=== PATIENT | female | born 1980 | race Caucasian/White ===

== ENCOUNTER 2016-06-07 15:06 | Outpatient (CLI) | payer OTHER ==
--- NOTE | 2016-06-07 18:32 | DIAGNOSTIC IMAGING REPORT ---
PROCEDURE: MR LUMBAR SPINE W/WO CONTRAST INDICATION: Low back and left leg pain. Scoliosis. Prior lumbar surgery (2014). Thoracic scoliosis with Sommer rods. TECHNIQUE: T1, T2 and STIR sagittal images. T1 coronal images. T1 and T2 axial images. Following 14 mL of intravenous gadolinium (ProHance), FAT-SAT T1 sagittal and axial images were obtained. COMPARISON: Comparison is made to MRI lumbar spine from [facility] [place] on 05/02/2015. Comparison made to chest x-ray on 12/07/1968. FINDINGS: There are postoperative changes of the lower thoracic spine with metal hardware consistent with Sommer rods. There is a severe levoscoliosis lumbar spine (35 degrees). Status post L3-4 discectomy, laminectomy, and posterior fusion (metal hardware). Conus is normal. L1-2: Minimally chronically bulging disc. No evidence of canal compromise. L2-3: Minimally chronically bulging disc. No evidence of canal compromise. L3-4: Status post discectomy with probable disc space throughout. Status post laminectomy with moderate residual scarring. Status post posterior fusion (metal stabilization plates and pedicle screws - - metal hardware/artifact). There is no evidence of canal compromise. L4-5: Mildly to moderately bulging disc and moderate to marked facet disease. In addition, there is a 5 mm cyst in the lateral aspect of the left neural foramen. Overall, these changes result in moderate narrowing of the central canal, lateral recesses, and lateral aspect of the left left neural foramen. L5-S1: Moderate facet disease. Disc is normal. There is surgical fusion of the right sacroiliac joint (metal screw artifact) IMPRESSION: 1. Postoperative changes of the lower thoracic spine (metal Sommer rods). 2. Severe levoscoliosis of the lumbar spine (35 degrees). 3. Minimally bulging discs at L1-2 and L2-3, but no evidence of canal compromise. 4. Status post L3-4 discectomy, laminectomy, and posterior element fusion (metal hardware). No evidence of canal compromise at this level. 5. Mildly to moderately bulging disc at L4-5 with moderate to marked facet disease results in moderate narrowing of the central canal and lateral recesses. While findings appear chronic, consider bilateral L5 radiculopathy. 6. There is a 5 mm synovial or ganglion cyst in the lateral left L4-5 neural foramen. While this appears unchanged, consider left L4 radiculopathy. 7. Moderate facet disease L5-S1 (no change).
== END 2016-06-07 23:00 | disposition home or self-care (01) ==
LOC: MRI SRH 15:06
DX: M51.26 Other intervertebral disc displacement, lumbar region (principal); M41.86 Other forms of scoliosis, lumbar region; M47.816 Spondylosis without myelopathy or radiculopathy, lumbar region; Z98.1 Arthrodesis status